=== PATIENT | male | born 2000 | race Caucasian/White ===

== ENCOUNTER 2023-09-04 03:18 | Emergency (ER) | payer MEDICAID ==
[~2023-09-04] VITALS: Ht 175.3 cm; Wt 63.5 kg
[2023-09-04 03:50] VITALS: BP 118/79
== END 2023-09-04 07:16 | disposition home or self-care (01) ==
LOC: ER 03:18 → EDBD 03:18 → ER 07:16
DX: S01.511A Laceration without foreign body of lip, initial encounter (principal); W01.190A Fall on same level from slipping, tripping and stumbling with subsequent striking against furniture, initial encounter
CPT/HCPCS: 12011; 99283